=== PATIENT | male | born 1980 | race Caucasian/White ===

== ENCOUNTER 2021-01-08 16:38 | Emergency (ER) | payer OTHER ==
[~2021-01-08] VITALS: Ht 177.8 cm; Wt 86.2 kg
[~2021-01-08 16:38] MED LIST: NOHOMEMEDICATIONS; NORCO 5-325 TA1 EACH PO; VALIUM2 MG PO; VICODIN 5-5001 EACH PO
[2021-01-08] MEDS ORDERED: DOXYCYCLINE 10100 MG PO (17:08)
[2021-01-08] MEDS ORDERED: SUPRAX400 M1 PO (17:08)
[2021-01-08 17:22] VITALS: BP 129/93
[2021-01-08 17:26] LABS: URINE BILIRUBIN NEGATIVE (Negative); URINE BLOOD 1+ (Negative); URINE CLARITY CLOUDY; URINE COLOR YELLOW; URINE GLUCOSE-RANDOM NEGATIVE (Negative); URINE KETONES NEGATIVE (Negative); URINE LEUKOCYTES-REFLEX 2+ (Negative); URINE NITRITE-REFLEX NEGATIVE (Negative); URINE PROTEIN 1+ (Negative); URINE SPECIFIC GRAVITY >= 1.030 (1.005-1.030)
[2021-01-08 17:34] LABS: MUCUS 4-6 Moderate strn/LPF (None Seen); SQUAMOUS 0-3 Few /LPF (0-3); URINE RBC 0-2 Rare /HPF (0-2); URINE WBC-REFLEX >25 Many /HPF (0-5)
[2021-01-08 17:35] LABS: CALCIUM OXALATE 0-3 Few /LPF (None Seen); CASTS None Seen /LPF (None Seen); WBC CLUMPS Few (None Seen)
[2021-01-08 17:36] LABS: BACTERIA-REFLEX None Seen /HPF (None Seen)
== END 2021-01-08 17:23 | disposition home or self-care (01) ==
LOC: M.ERS 16:38
PROVIDERS: Nurse Practitioner Family
DX: N34.2 Other urethritis (principal); Z20.2 Contact with and (suspected) exposure to infections with a predominantly sexual mode of transmission; Z86.19 Personal history of other infectious and parasitic diseases